=== PATIENT | female | born 1985 | race African-American/Black ===

== ENCOUNTER 2023-12-24 13:35 | Inpatient (IN) | payer OTHER ==
[2023-12-24 15:09] VITALS: BMI 25.7
[2023-12-24] MEDS ORDERED: MAG HYDROX/AL HYDROX/SIMETH 30 ML UNIT-DOSE CUP PO PRN (16:35)
[2023-12-24] MEDS ORDERED: POLYETHYLENE GLYCOL (HEALTHYLAX) 3350 17 GM PACKET PO PRN (16:35)
[2023-12-24] MEDS ORDERED: BENZONATATE 200 MG CAPSULE PO PRN (16:35)
[2023-12-24] MEDS ORDERED: IBUPROFEN 400 MG TABLET (FP) PO PRN (16:35)
[2023-12-24] MEDS ORDERED: NICOTINE POLACRILEX 2 MG GUM BUC PRN (16:35)
[2023-12-24] MEDS ORDERED: LOPERAMIDE HCL 2 MG CAPSULE PO PRN (16:35)
[2023-12-24] MEDS ORDERED: BENZOCAINE/MENTHOL (CHLORASEPTIC ) LOZENGE MM PRN (16:35)
[2023-12-24] MEDS ORDERED: guaiFENesin 600 MG TABLET.ER (FP) PO PRN (16:35)
[2023-12-24] MEDS: THIAMINE HCL 100 MG TABLET (FP) PO SCH (21:20)
[2023-12-24] MEDS: TOLNAFTATE 1% CREAM 15 GM TUBE TP SCH (21:20)
[2023-12-24] MEDS: MELATONIN 5 MG TABLETS PO SCH (21:20)
[2023-12-24] MEDS: hydrOXYzine PAMOATE 25 MG CAPSULE (FP) PO PRN (21:21)
[2023-12-25] MEDS: PRENATAL VITAMINS W/ FOLIC ACID TABLET (FP) PO SCH (10:07)
[2023-12-25 11:45] LABS: HEMATOCRIT 34.5 % (32.4-45.2); HEMOGLOBIN 11.1 GM/dL (10.7-15.3); MCH 28.9 pg (25.7-33.7); MCHC 32.3 g/dl (32.0-36.0); MEAN CELL VOLUME 89.4 fl (80-96); MEAN PLT VOLUME 7.7 fl (7.5-11.1); PLATELET COUNT 227 10^3/uL (134-434); RBC 3.86 M/mm3 (3.60-5.2); RDW 15.3 % (11.6-15.6); WHITE BLOOD COUNT 4.9 K/mm3 (4.0-10.0)
[2023-12-25 11:49] LABS: CHLORIDE 109 mmol/L (98-107); POTASSIUM 4.4 mmol/L (3.5-5.1); SODIUM 139 mmol/L (136-145)
[2023-12-25 11:54] LABS: BLOOD UREA NITROGEN 21.2 mg/dL (7-18)
[2023-12-25 11:56] LABS: ANION GAP 4 mmol/L (4-13); CALCIUM 8.5 mg/dL (8.5-10.1); CO2 26 mmol/L (21-32)
[2023-12-25 11:57] LABS: ALBUMIN 3.1 g/dl (3.4-5.0); GLUCOSE,RANDOM 117 mg/dL (74-106)
[2023-12-25 11:59] LABS: SGPT/ALT 22 U/L (13-61)
[2023-12-25 12:00] LABS: ALK PHOS 89 U/L (45-117); BILIRUBIN,TOTAL 0.5 mg/dL (0.2-1); SGOT/AST 20 U/L (15-37)
[2023-12-25 12:02] LABS: TOT PROT 6.2 g/dl (6.4-8.2)
[2023-12-25 14:30] LABS: PH,URINE 5.5 (5.0-8.0); URINE APPEARANCE CLEAR; URINE BILIRUBIN NEGATIVE (NEGATIVE); URINE COLOR YELLOW; URINE GLUCOSE (UA) NEGATIVE (NEGATIVE); URINE KETONE NEGATIVE (NEGATIVE); URINE LEUK ESTERASE NEGATIVE (NEGATIVE); URINE NITRITE NEGATIVE (NEGATIVE); URINE PROTEIN NEGATIVE (NEGATIVE); URINE UROBILINOGEN 0.2 mg/dL (0.2-1.0)
[2023-12-25] MEDS: risperiDONE 1 MG TABLET PO SCH (21:13)
[2023-12-26] MEDS: SERTRALINE HCL 25 MG TABLET (FP) PO SCH (10:01)
[2023-12-30] MEDS: MAGNESIUM HYDROX 2400MG/30ML ORAL SUSPENSION 30 ML CUP PO PRN (11:18)
[2023-12-30] MEDS: CLOTRIMAZOLE 1% CREAM TP SCH (21:33)
[2023-12-30] MEDS: BACLOFEN 10 MG TABLET (FP) PO SCH (21:34)
[2023-12-31] MEDS: ACETAMINOPHEN 325 MG TABLET (FP) PO PRN (12:15)
[2023-12-31] MEDS: SUVOREXANT 5 MG TABLET PO PRN (21:20)
[2023-12-31] MEDS: IBUPROFEN 600 MG TABLET (FP) PO PRN (21:22)
[2024-01-03] MEDS: SUVOREXANT 5 MG TABLET PO PRN (21:29)
[2024-01-06] MEDS: SUVOREXANT 10 MG TABLET PO PRN (21:27)
[2024-01-06] MEDS ORDERED: SUVOREXANT 5 MG TABLET PO PRN (22:00)
[2024-01-08] MEDS: traZODone HCL 100 MG TABLET (FP) PO SCH (21:25)
[2024-01-14] MEDS: QUEtiapine FUMARATE 100 MG TABLET (FP) PO SCH (21:23)
[2024-01-15] MEDS: QUEtiapine FUMARATE 100 MG TABLET (FP) PO SCH (10:11)
[2024-01-16] MEDS: QUEtiapine FUMARATE 200 MG TABLET PO SCH (21:14)
[2024-01-21 07:02] VITALS: BP 103/75; PULSE 89; RESP 16; TEMP 97.8
== END 2024-01-21 10:26 | disposition home or self-care (01) | DRG 772 ==
LOC: YASAS 13:35 → Y5N 19:01
PROVIDERS: ADMIT Allergy & Immunology; ATTEND Psychiatry & Neurology Pain Medicine
PROC: HZ42ZZZ Group Counseling for Substance Abuse Treatment, Cognitive-Behavioral (ICD-10-PCS; principal; 2023-12-24)
DX: F14.20 Cocaine dependence, uncomplicated (principal); F17.210 Nicotine dependence, cigarettes, uncomplicated; F25.9 Schizoaffective disorder, unspecified; N64.3 Galactorrhea not associated with childbirth; B35.1 Tinea unguium; Z28.310 Unvaccinated for COVID-19; Z28.9 Immunization not carried out for unspecified reason
CPT/HCPCS: 36415; 80053; 80305; 80307; 81003; 81025; 83036; 83735; 84146; 85027; 86593; 86780; 87635; 87811; 93005; 93010; J0475